=== PATIENT | male | born 1955 | race Caucasian/White ===

== ENCOUNTER 2017-05-21 05:27 | Day surgery (SDC) | payer OTHER ==
[2017-05-19 14:02] LABS: HEMATOCRIT 43.4 % (40.0-51.0)
[2017-05-19 14:14] LABS: BUN (BLOOD UREA NITROGEN) 12 MG/DL (6-23); CHLORIDE, SERUM 108 MMOL/L (96-112); CO2 (CARBON DIOXIDE) 27 MMOL/L (24-34); CREATININE 0.92 MG/DL (0.70-1.30); GFR AFRICAN AMERICAN 104 ML/MIN (>=60); GFR NON AFRICAN AMERICAN 90 ML/MIN (>=60); GLUCOSE, SERUM 102 MG/DL (60-99); POTASSIUM, SERUM 3.8 MMOL/L (3.5-5.3); SODIUM, SERUM 142 MMOL/L (135-148)
--- NOTE | ~2017-05-21 | OP ---
Record Of Operation [facility] [address] [place]. [address] NAME: IRVING LOMBARDI : 57 [place]US [place] [facility] [place] [id number] AGE: 61 ADM/REG DATE : 05/21/17 MR#: [id number] REPORT SERV DATE: 05/21/17 DICTATED BY: BAIRON MCCLURE DATE: 05/21/17 REPORT STATUS : Draft TRANSCRIBED BY: MODL DATE: 05/21/17 DATE OF PROCEDURE: 05/21/2017 PREOPERATIVE DIAGNOSIS: Spinal stenosis with radiculopathy, left and right side L4-5. POSTOPERATIVE DIAGNOSIS: Spinal stenosis with radiculopathy, left and right side L4-5. PROCEDURES: 1. Microscopic and navigation assisted surgery. 2. Right-sided L4-5 hemilaminotomy, foraminotomy, partial medial facetectomy, and bilateral decompression through a unilateral approach. MED DIR: Manny Sultana. ANESTHESIA: General. BLOOD LOSS: 20 mL. INDICATIONS FOR SURGERY: A very pleasant 61-year-old gentleman from the [facility], who has had long-standing pain in his back, radiating to his legs, right much greater than left. The pain is worse with a lot worse standing and walking, etc. The plain x-rays reveal significant facet arthropathy in the lower lumbar spine. He does have lateral flexion and extension x-rays which do not show any evidence of gross instability. He does have a very minimal amount of 1 or 2 mm of instability but it does not have gross instability as defined, has greater than 4 mm of translation. He has failed all forms of conservative care of time, medication, and therapy, etc, now brought to surgery for the above procedure, having failed conservative care. Prior to surgery, risks, benefits, alternatives, and expectations have been explained. Consent form is signed. PROCEDURE IN DETAIL: Antibiotic prophylaxis given. Neurophysiology monitoring leads inserted. The patient was brought to the operative suite. General anesthetic including endotracheal intubation has been administered. He was placed prone on a Rodney spine frame. Bony prominences were carefully padded. Thoracolumbar spine scrubbed with Hibiclens solution. DuraPrep was painted and sterile drapes applied. A small stab wound was carried out over the posterior superior iliac spine. A percutaneous pin with navigational frame attached was inserted in the PSIS. Intraoperative CT scan with O-arm obtained, CT information used to register the navigational system. Please note, we felt the intraoperative navigational system was mandatory secondary to the fact that we need to identify the correct level of surgery to carry out the safest and most precise dissection with the least amount of radiation exposure. With navigational assistance, I identified the L4-5 level. Just to the right of midline, a 2 cm skin incision was carried out and a blunt navigated probe placed through the fascia and muscle and docked over the interlaminar space of L4-5. Muscle dilators were inserted, Record Of Operation [facility] [address] [place]. [address] NAME: IRVING LOMBARDI : 57 STATUS : REG [facility] PAT#: [id number] AGE: 61 ADM/REG DATE : 05/21/17 MR#: [id number] REPORT SERV DATE: 05/21/17 DICTATED BY: BAIRON MCCLURE DATE: 05/21/17 REPORT STATUS : Draft TRANSCRIBED BY: WYATT DATE: 05/21/17 followed by placement of a tubular retractor attached to an arm mount table. The microscope was sterilely draped and used throughout the remainder of the procedure. With navigational assistance, I identified the amount of lamina of L4 that I wanted to remove in order to reach the cephalad boundary of the disk space. I also identified the amount of medial facet joint that I needed to remove in order to reach the lateral aspect of the thecal sac and decompressed the lateral recess. I used a 3 mm kobe bur. I removed 60% to 70% of the lamina of L4. I removed 25% to 30% of the medial facet joint of L4-5 and the ligamentum flavum and facet hypertrophy. It was rather marked. Much to my surprise, I found that the ligamentum flavum distally just distal to the disk space was read adhered to the thecal sac ultimately finding that this had been a synovial cyst that had adhered to the dura but did not show up on MRI. The synovial cyst was rather small and is mainly the remaining scarred empty sac of the cyst that was really adhered to the dura which I left in place. After the decompression on the right side, I turned the patient in the bed as a unit and I worked across the posterior aspect of the thecal sac. I used a kobe bur and injured the interlaminar space on the left side and I drilled all the way over to the facet joint. I then removed the anterior leaflet of the lamina as well as the hypertrophied ligamentum flavum and again much to my surprise, actually just proximal to the disk space on the left, I found a rather large synovial cyst which was still intact and we removed this and completely decompressed in the left and the right side nicely. The retractor was removed. The wounds were irrigated. No further compression was noted. The fascial opening was closed with a single interrupted #1 Vicryl suture. The subcutaneous tissue was closed with a 2-0 Vicryl sutures; 2-0 vertical mattress nylon suture was used for the skin closure. Sterile dressings applied. The patient returned to supine position, awakened, extubated, taken to the recovery room in satisfactory condition, having tolerated the procedure well. Sponge, needle, and instrument counts were correct. No intraoperative complications noted. CARYN/EDEL Bairon Mcclure D.O. / [id number] CC: Irving Méndez
[~2017-05-21 05:27] MED LIST: ANAF PO; ASA5GR PO; CARDCD240 PO; COZAAR100 MG PO; CRESTOR40 MG PO; FLEX PO; GLUCPH PO; HTN MED; HYZAAR 100/25 T1 TAB PO; LOPRESS HC100 MG/25 PO; NORV10 PO; PLAVIX PO; TOPXL50 PO; ZOL50 PO
== END 2017-05-21 18:46 | disposition home or self-care (01) ==
LOC: SDC 05:27
PROVIDERS: Orthopaedic Surgery Orthopaedic Surgery of the Spine
PROC: 01NB0ZZ Release Lumbar Nerve, Open Approach (ICD-10-PCS; principal; 2017-05-21 07:00)
DX: M48.06 Spinal stenosis, lumbar region (principal); I25.10 Atherosclerotic heart disease of native coronary artery without angina pectoris; E78.5 Hyperlipidemia, unspecified; K21.9 Gastro-esophageal reflux disease without esophagitis; E11.9 Type 2 diabetes mellitus without complications; M47.26 Other spondylosis with radiculopathy, lumbar region; F41.9 Anxiety disorder, unspecified; I10 Essential (primary) hypertension; Z79.899 Other long term (current) drug therapy; Z79.82 Long term (current) use of aspirin; Z79.891 Long term (current) use of opiate analgesic; Z79.02 Long term (current) use of antithrombotics/antiplatelets; Z79.84 Long term (current) use of oral hypoglycemic drugs; Z98.890 Other specified postprocedural states
CPT/HCPCS: 80048; 82962; 85014; 85018; 88304; 88311; 93005; A9270-GY; J0690; J1644; J2250; J2270; J2405; J2710; J3010